=== PATIENT | male | born 1970 | race Caucasian/White ===

== ENCOUNTER → 2018-04-10 | Outpatient (CLI) | payer OTHER ==
--- NOTE | 2018-04-10 11:47 | RADIOLOGY REPORT (SQ) ---
EXAM DESCRIPTION: ANKLE LEFT COMPLETE COMPLETED DATE/TIME: 04/10/2018 11:37 am REASON FOR STUDY: BILAT KNEE PAIN (M25.562, M25.561), BILAT ANKLE PAIN (M25.571,M25.572) M25.571 PA IN IN RIGHT ANKLE AND JOINTS OF RIGHT FOOT M25.561 PAIN IN RIGHT KNEE M25.562 PAIN IN LEFT KNEE COMPARISON: None. NUMBER OF VIEWS: Three views. TECHNIQUE: AP, lateral, and oblique radiographic images acquired of the left ankle. LIMITATIONS: None. FINDINGS: MINERALIZATION: Normal. BONES: No evidence of acute bony abnormality. Degenerative changes with chronic appearing corticated fragment inferior to the medial malleolus. Additional degenerative changes at the lateral malleolus with subcortical lucency in the distal fibula. Plantar and calcaneal enthesophyte. Calcification a t the Achilles tendon. JOINTS: No effusions. SOFT TISSUES: Calcification at the Achilles tendon. OTHER: No other significant finding. IMPRESSION: No evidence of acute bony abnormality. Chronic appearing degenerative changes at the medial and lateral malleolus, likely related to prior i njury. TECHNICAL DOCUMENTATION: JOB ID: [id number] [employer]- All Rights Reserved Reading location - IP/workstation name: [email or web address]
--- NOTE | 2018-04-10 11:49 | RADIOLOGY REPORT (SQ) ---
EXAM DESCRIPTION: ANKLE RIGHT COMPLETE COMPLETED DATE/TIME: 04/10/2018 11:37 am REASON FOR STUDY: BILAT KNEE PAIN (M25.562, M25.561), BILAT ANKLE PAIN (M25.571,M25.572) M25.571 PA IN IN RIGHT ANKLE AND JOINTS OF RIGHT FOOT M25.561 PAIN IN RIGHT KNEE M25.562 PAIN IN LEFT KNEE COMPARISON: None. NUMBER OF VIEWS: Three views. TECHNIQUE: AP, lateral, and oblique radiographic images acquired of the right ankle. LIMITATIONS: None. FINDINGS: MINERALIZATION: Normal. BONES: No fracture or dislocation. Mild osteophytosis at the inferior medial and lateral malleolus. Talar dome is intact. Mild midfoot degenerative change and osteophytosis. Superior and plantar sridevi caneal enthesophytes. JOINTS: No effusions. SOFT TISSUES: No soft tissue swelling. No foreign body. OTHER: No other significant finding. IMPRESSION: No evidence of acute bony abnormality. Mild degenerative change as above. TECHNICAL DOCUMENTATION: JOB ID: [id number] [employer]- All Rights Reserved Reading location - IP/workstation name: [email or web address]
--- NOTE | 2018-04-10 12:00 | RADIOLOGY REPORT (SQ) ---
EXAM DESCRIPTION: KNEE LEFT 4 VIEW COMPLETED DATE/TIME: 04/10/2018 11:37 am REASON FOR STUDY: BILAT KNEE PAIN (M25.562, M25.561), BILAT ANKLE PAIN (M25.571,M25.572) M25.571 PA IN IN RIGHT ANKLE AND JOINTS OF RIGHT FOOT M25.561 PAIN IN RIGHT KNEE M25.562 PAIN IN LEFT KNEE COMPARISON: None. NUMBER OF VIEWS: Four views. TECHNIQUE: AP, lateral, and both oblique radiographic images acquired of the left knee. LIMITATIONS: None. FINDINGS: MINERALIZATION: Normal. BONES: No acute fracture or dislocation. No worrisome bone lesions. Mild enthesopathy at the inferi or patella. JOINT: No effusion. SOFT TISSUES: No soft tissue swelling. No radio-opaque foreign body. OTHER: No other significant finding. IMPRESSION: No evidence of acute bony abnormality. No significant joint space loss. TECHNICAL DOCUMENTATION: JOB ID: [id number] [email or web address]- All Rights Reserved Reading location - IP/workstation name: [facility]
--- NOTE | 2018-04-10 12:03 | RADIOLOGY REPORT (SQ) ---
EXAM DESCRIPTION: KNEE RIGHT 4 VIEWS COMPLETED DATE/TIME: 04/10/2018 11:37 am REASON FOR STUDY: BILAT KNEE PAIN (M25.562, M25.561), BILAT ANKLE PAIN (M25.571,M25.572) M25.571 PA IN IN RIGHT ANKLE AND JOINTS OF RIGHT FOOT M25.561 PAIN IN RIGHT KNEE M25.562 PAIN IN LEFT KNEE COMPARISON: None. NUMBER OF VIEWS: Four views. TECHNIQUE: AP, lateral, and both oblique radiographic images acquired of the right knee. LIMITATIONS: None. FINDINGS: MINERALIZATION: Normal. BONES: No acute fracture or dislocation. No worrisome bone lesions. Mild patellar and anterior tibi al enthesopathy. JOINT: No effusion. SOFT TISSUES: No soft tissue swelling. No radio-opaque foreign body. OTHER: No other significant finding. IMPRESSION: No evidence of acute bony abnormality. No significant degenerative change. TECHNICAL DOCUMENTATION: JOB ID: [id number] [employer]- All Rights Reserved Reading location - IP/workstation name: [facility]
== END ==
LOC: RAD 10:49
PROVIDERS: ATTEND Family Medicine
DX: M25.571 Pain in right ankle and joints of right foot (principal); M25.561 Pain in right knee; M25.562 Pain in left knee; M25.572 Pain in left ankle and joints of left foot; G89.29 Other chronic pain

== ENCOUNTER 2018-06-26 05:33 | Day surgery (SDC) | payer OTHER ==
--- NOTE | 2018-06-19 09:52 | EKG REPORT ---
SEVERITY:- NORMAL ECG - SINUS RHYTHM ST ELEV, PROBABLE NORMAL EARLY REPOL PATTERN : Confirmed by: Rosemarie Nicole 19-Jun-2018 09:52:26
--- NOTE | 2018-06-19 09:56 | RADIOLOGY REPORT (SQ) ---
EXAM DESCRIPTION: CHEST PA/LATERAL COMPLETED DATE/TIME: 06/19/2018 9:46 am REASON FOR STUDY: PRE-OP COMPARISON: None. EXAM PARAMETERS: NUMBER OF VIEWS: two views TECHNIQUE: Digital Frontal and Lateral radiographic views of the chest acquired. RADIATION DOSE: NA LIMITATIONS: none FINDINGS: LUNGS AND PLEURA: No opacities, masses or pneumothorax. No pleural effusion. MEDIASTINUM AND HILAR STRUCTURES: No masses or contour abnormalities. HEART AND VASCULAR STRUCTURES: Heart normal size. No evidence for failure. BONES: No acute findings. HARDWARE: None in the chest. OTHER: No other significant finding. IMPRESSION: 1. NO SIGNIFICANT RADIOGRAPHIC FINDING IN THE CHEST. TECHNICAL DOCUMENTATION: JOB ID: [id number] [employer]- All Rights Reserved Reading location - IP/workstation name: [email or web address]
[2018-06-19 10:00] LABS: HEMATOCRIT 49.7 % (37.9-51.0); HEMOGLOBIN 17.4 g/dL (13.5-17.0); MEAN CORPUSCULAR HEMOGLOBIN 30.1 pg (27.0-33.4); MEAN CORPUSCULAR VOLUME 86 fl (80-97); PLATELET COUNT 241 10^3/uL (150-450); RED BLOOD COUNT 5.78 10^6/uL (4.35-5.55); RED CELL DISTRIBUTION WIDTH 13.4 % (11.5-14.0); WHITE BLOOD COUNT 10.1 10^3/uL (4.0-10.5)
[2018-06-19 10:10] LABS: APPEARANCE,URINE CLEAR; BILIRUBIN,URINE NEGATIVE (NEGATIVE); COLOR,URINE YELLOW; GLUCOSE, URINE NEGATIVE (NEGATIVE); KETONES,URINE NEGATIVE (NEGATIVE); LEUKOCYTE ESTERASE,URINE TRACE (NEGATIVE); NITRITE,URINE NEGATIVE (NEGATIVE); PROTEIN,URINE NEGATIVE (NEGATIVE); UROBILINOGEN,URINE NEGATIVE mg/dL (<2.0)
[2018-06-19 10:27] LABS: ANION GAP 9 (5-19); BLOOD UREA NITROGEN 12 mg/dL (7-20); CALCIUM 9.9 mg/dL (8.4-10.2); CARBON DIOXIDE 26 mmol/L (22-30); CHLORIDE 105 mmol/L (98-107); GLUCOSE 92 mg/dL (75-110); POTASSIUM 4.2 mmol/L (3.6-5.0); SODIUM 140.2 mmol/L (137-145)
[~2018-06-26 05:33] MED LIST: CLINDAMYCIN 600 MG/D5W RTU 600 MG/50 ML RTUPB IV ONE; CLINDAMYCIN 600 MG/D5W RTU 600 MG/50 ML RTUPB IV PRN; LACTATED RINGERS 1000 ML IV PRN; LIDOCAINE 0.5% INJ-PF (5 MG/ML) 50 ML SDV SUBCUT PRN; SCOPOLAMINE HYDROBROMIDE 1.5 MG PATCH.TD72 TD PRN
[2018-06-26] MEDS ORDERED: SCOPOLAMINE HYDROBROMIDE 1.5 MG PATCH.TD72 ONE (06:56)
[2018-06-26] MEDS ORDERED: ONDANSETRON HCL INJ/PF 4 MG/2 ML SDV ONE ×2 (06:56→07:03)
[2018-06-26] MEDS ORDERED: FENTANYL CITRATE INJ/PF 100 MCG/2 ML AMPUL ONE (07:03)
[2018-06-26] MEDS ORDERED: EPHEDRINE SULFATE INJ 50 MG/1 ML AMPULE ONE (07:03)
[2018-06-26] MEDS ORDERED: MIDAZOLAM 2 MG/2 ML INJ ONE (07:03)
[2018-06-26] MEDS ORDERED: ACETAMINOPHEN 1,000 MG/100 ML RTUPB IV ONE (07:04)
[2018-06-26] MEDS ORDERED: PROPOFOL INJ 200 MG/20 ML VIAL IV ONE (07:04)
[2018-06-26] MEDS ORDERED: TRANEXAMIC ACID INJ/PF 1,000 MG/10 ML SDV IV ONE (07:09)
[2018-06-26] MEDS ORDERED: BUPIVACAINE HCL 0.5 % INJ/PF 30 ML SDV ONE (07:15)
[2018-06-26] MEDS ORDERED: PROMETHAZINE HCL INJ 25 MG/1 ML VIAL ONE (07:45)
[2018-06-26] MEDS ORDERED: DEXAMETHASONE SOD PHOSPHATE INJ 4 MG/1 ML VIAL ONE (07:45)
[2018-06-26] MEDS ORDERED: HYDROMORPHONE HCL INJ/PF 2 MG/ML AMPULE ONE (07:45)
[2018-06-26] MEDS ORDERED: FENTANYL CITRATE INJ/PF 100 MCG/2 ML AMPUL IV PRN ×3 (08:49)
[2018-06-26] MEDS ORDERED: MEPERIDINE HCL/PF INJ 25 MG/1 ML DISP.SYRIN IV PRN (08:49)
[2018-06-26] MEDS ORDERED: MORPHINE SULFATE 10 MG/ML INJ IV PRN (08:49)
[2018-06-26] MEDS ORDERED: PROMETHAZINE HCL INJ 25 MG/1 ML VIAL IV PRN ×2 (08:49)
[2018-06-26] MEDS ORDERED: DIPHENHYDRAMINE HCL 50 MG/ML VIAL IV PRN (08:49)
--- NOTE | 2018-06-26 09:01 | Operative Report ---
Operative Report DATE OF SURGERY: 06/26/18 PREOPERATIVE DIAGNOSIS: Left ankle arthritis OPERATION: Left tibiotalar fusion SURGEON: BETINA MARSHALL ANESTHESIA: Spinal ESTIMATED BLOOD LOSS: 50 PROCEDURE: With the patient supine and operative table left lower extremities prepped and draped in sterile fashion. Limb was elevated for exsanguination tourniquet inflated to 280 torr. Longitudinal incisions made over the anterior tibialis tendon in we entered the tibialis tendon and exited on its deep surface in the approach to the ankle. Do this to avoid the neurovascular bundle which is adjacent to it. The ankle joint is exposed. Using oscillating saw the proximal articular surface of the talus is resected followed by the distal articular surface of the tibia. The post cancellus surfaces were then approximated and held with a Steinmann pin through the plantar surface of the foot to look at alignment. This is judged fluoroscopically. Hindfoot appears to be in neutral. Foot seems to be neutral in terms of plantar and dorsal grade. Subsequently the Arthrex anterior tibiotalar fusion plate is applied to the answer will surface of the talus. It secured with 4 screws. Next bone graft is made by morselizing the bone that was resected from the articular surfaces is placed at the tibiotalar joint. A compression screw was placed through the oblong hole and the Arthrex fusion plate. The plantar pin is removed and then the plate is compressed using this compression screw. There is a clear visual confirmation of the compression. The remaining 4 screws were placed into the tibia. Hardware placement and foot position is again checked fluoroscopically and thought to be adequate. The tourniquet is deflated. Hemostasis obtained with electrocautery. The wound is irrigated with bulb lavage. I's and closure is interrupted Vicryl followed by nylon. A sterile compressive dressing posterior plaster splint were applied and the patient's return to PACU in satisfactory condition.
[2018-06-26] MEDS ORDERED: RINGERS SOLUTION,LACTATED 1,000 ML IV PRN (10:31)
[2018-06-26] MEDS ORDERED: ONDANSETRON 4 MG TAB.RAPDIS SL PRN (10:32)
[2018-06-26] MEDS ORDERED: ACETAMINOPHEN 325 MG TABLET PO PRN (10:32)
[2018-06-26] MEDS: OXYCODONE HCL IR 5 MG TABLET PO PRN ×2 (10:59→19:03)
[2018-06-26] MEDS: CLINDAMYCIN 600 MG/D5W RTU 600 MG/50 ML RTUPB IV SCH ×2 (11:11→17:25)
--- NOTE | 2018-06-26 11:34 | RADIOLOGY REPORT (SQ) ---
EXAM DESCRIPTION: ANKLE LEFT AP/LATERAL; NO CHG FLUORO COMPLETED DATE/TIME: 06/26/2018 9:29 am REASON FOR STUDY: LEFT ANKLE ARTHRODESIS ASST WITH FLUORO IN OR M25.572 PAIN IN LEFT ANKLE AND JOIN TS OF LEFT FOOT COMPARISON: Left ankle films 04/10/2018 FLUOROSCOPY TIME: 0.4 minutes 3 images saved to PACS. TECHNIQUE: Intra-operative images acquired during surgical procedure to evaluate progress. NUMBER OF IMAGES: 3 LIMITATIONS: None. FINDINGS: Intra procedural imaging and fluoro during fusion at the tibiotalar joint, with anterior f ixation plate and multiple screws. Please see the operative report for further details IMPRESSION: Intra procedural imaging and fluoro COMMENT: Quality ID 145: Final reports for procedures using fluoroscopy that document radiation exp osure indices, or exposure time and number of fluorographic images (if radiation exposure indices are not available) Please consult full operative report of the attending physician for description of the procedure. TECHNICAL DOCUMENTATION: JOB ID: [id number] [employer]- All Rights Reserved Reading location - IP/workstation name: [email or web address]
--- NOTE | 2018-06-26 11:34 | RADIOLOGY REPORT (SQ) ---
EXAM DESCRIPTION: ANKLE LEFT AP/LATERAL; NO CHG FLUORO COMPLETED DATE/TIME: 06/26/2018 9:29 am REASON FOR STUDY: LEFT ANKLE ARTHRODESIS ASST WITH FLUORO IN OR M25.572 PAIN IN LEFT ANKLE AND JOIN TS OF LEFT FOOT COMPARISON: Left ankle films 04/10/2018 FLUOROSCOPY TIME: 0.4 minutes 3 images saved to PACS. TECHNIQUE: Intra-operative images acquired during surgical procedure to evaluate progress. NUMBER OF IMAGES: 3 LIMITATIONS: None. FINDINGS: Intra procedural imaging and fluoro during fusion at the tibiotalar joint, with anterior f ixation plate and multiple screws. Please see the operative report for further details IMPRESSION: Intra procedural imaging and fluoro COMMENT: Quality ID 145: Final reports for procedures using fluoroscopy that document radiation exp osure indices, or exposure time and number of fluorographic images (if radiation exposure indices are not available) Please consult full operative report of the attending physician for description of the procedure. TECHNICAL DOCUMENTATION: JOB ID: [id number] [employer]- All Rights Reserved Reading location - IP/workstation name: [email or web address]
[2018-06-26] MEDS: MORPHINE SULFATE 10 MG/ML INJ IV PRN ×5 (12:01→23:28)
[2018-06-26] MEDS ORDERED: SUCCINYLCHOLINE CHLORIDE INJ 200 MG/10 ML VIAL ONE (15:26)
[2018-06-27] MEDS: MORPHINE SULFATE 10 MG/ML INJ IV PRN ×2 (02:53→05:22)
--- NOTE | 2018-06-27 07:00 | PDOC DISCHARGE SUMMARY ---
General - Admit/Disc Date/PCP Admission Date/Primary Care Provider: KEM HUBBARD DO Discharge Date: 06/27/18 - Discharge Diagnosis (1) Arthritis of left ankle Is this a current diagnosis for this admission?: Yes - Additional Information Home Medications: Acetaminophen [Tylenol Extra Strength 500 mg Tablet] 1,000 mg PO Q6HP PRN 06/26/18 Dextroamphetamine/Amphetamine [Adderall 20 mg Tablet] 50 mg PO DAILY@1700 06/26/18 Ibuprofen [Motrin 800 mg Tablet] 800 mg PO Q8HP PRN 06/26/18 Montelukast Sodium [Singulair 10 mg Tablet] 10 mg PO QAM 06/26/18 Pramipexole Di-HCl [Mirapex] 1 mg PO QAM 06/26/18 History of Present Illness History of Present Illness: REBECCA SOLORZANO is a 48 year old male Patient is a 48-year-old white male with progressive left ankle pain and functional disability second osteoarthritis. Patient is admitted for elective left tibiotalar arthrodesis. Hospital Course Hospital Course: Patient is admitted through the operating where he undergoes uncomplicated left tibiotalar arthrodesis. Is returned to floor in satisfactory condition. Initially analgesia remains problematic but this is addressed over the course of the subsequent 12-24 hours. Patient will be seen by physical therapy prior to discharge to assess the patient's ability to ambulate with a touchdown weightbearing restriction. Physical Exam Vital Signs: Temp Pulse Resp BP Pulse Ox 37.1 C 69 18 137/69 H 100 06/27/18 04:54 06/27/18 04:54 06/27/18 04:54 06/27/18 04:54 06/27/18 04:54 Intake & Output 06/25/18 06/26/18 06/27/18 06:59 06:59 06:59 Intake Total 0 2800 Output Total 2500 Balance 0 300 Weight 136.08 kg 136 kg Physical Exam: Overweight middle-aged white male lying in hospital bed in minimal distress. General appearance: PRESENT: no acute distress, mild distress, well-nourished Head exam: PRESENT: normocephalic Respiratory exam: PRESENT: unlabored Cardiovascular exam: PRESENT: RRR Vascular exam: PRESENT: normal capillary refill GI/Abdominal exam: PRESENT: soft Rectal exam: PRESENT: deferred Extremities exam: PRESENT: other - Left lower extremity immobilized in plaster splint. Toes are visible. There is brisk capillary refill. Sensory examination is intact to light touch. Motor function to great toe flexion extension is intact. Neurological exam: PRESENT: alert, awake, oriented to person, oriented to place, oriented to time, oriented to situation. ABSENT: motor sensory deficit Psychiatric exam: PRESENT: appropriate affect, normal mood. ABSENT: homicidal ideation, suicidal ideation Skin exam: PRESENT: dry, intact, warm. ABSENT: cyanosis, rash Results Laboratory Results: 06/19/18 09:27 06/19/18 09:27 Impressions: Chest X-Ray 06/19/18 00:00 IMPRESSION: 1. NO SIGNIFICANT RADIOGRAPHIC FINDING IN THE CHEST. Ankle X-Ray 06/26/18 00:00 IMPRESSION: Intra procedural imaging and fluoro Fluoroscopy 06/26/18 00:00 IMPRESSION: Intra procedural imaging and fluoro Status: Imported from PACS Qualifiers - * PATIENT BEING DISCHARGED WITH ANY OF THE FOLLOWING DIAGNOSIS: No VTE patient discharged on overlapping Therapy?: Yes Plan Discharge Plan: Patient be discharged on a touchdown weightbearing restriction on the left lower extremity. Social work to arrange for home health nursing, home health physical therapy, and DME. Follow-up with Dr. Jaz Nichole Morse for surgery in 2 weeks for suture removal.
[2018-06-27] MEDS: OXYCODONE HCL IR 5 MG TABLET PO PRN (07:57)
[2018-06-27 09:37] VITALS: BP 160/97
[2018-06-27] MEDS ORDERED: ASPIRIN 81 MG TABLET, ENT COATED PO SCH (10:00)
== END 2018-06-27 10:49 | disposition home or self-care (01) ==
LOC: OROUT 05:33 → 2N 10:00 → OROUT 06-27 10:49
PROVIDERS: ATTEND Orthopaedic Surgery
DX: M19.072 Primary osteoarthritis, left ankle and foot (principal); M25.572 Pain in left ankle and joints of left foot; E03.9 Hypothyroidism, unspecified; E78.5 Hyperlipidemia, unspecified; Z79.899 Other long term (current) drug therapy; Z79.4 Long term (current) use of insulin; Z88.0 Allergy status to penicillin; Z87.892 Personal history of anaphylaxis; J45.909 Unspecified asthma, uncomplicated; Z01.818 Encounter for other preprocedural examination
CPT/HCPCS: 93010; 93005; 27870; 36415; 85027; 80048; 81001; 73600; 71046; 97116; 97161; C1769; J2250; J3490; J1100; J3010; J2270 ×2; J1170; J2550; J0330; J2405; J7120; J2704; J0131; 01480

== ENCOUNTER → 2018-11-14 | Outpatient (CLI) | payer OTHER ==
[2018-11-14 09:18] LABS: HEMATOCRIT 46.9 % (37.9-51.0); HEMOGLOBIN 16.1 g/dL (13.5-17.0); MEAN CORPUSCULAR HGB CONC 34.3 g/dL (32.0-36.0); MEAN CORPUSCULAR VOLUME 88 fl (80-97); PLATELET COUNT 196 10^3/uL (150-450); RED BLOOD COUNT 5.37 10^6/uL (4.35-5.55); RED CELL DISTRIBUTION WIDTH 13.6 % (11.5-14.0); WHITE BLOOD COUNT 7.1 10^3/uL (4.0-10.5)
[2018-11-14 09:56] LABS: ALANINE AMINOTRANSFERASE 42 U/L (21-72); ALBUMIN 4.2 g/dL (3.5-5.0); ALKALINE PHOSPHATASE 83 U/L (38-126); ANION GAP 6 (5-19); ASPARTATE AMINO TRANSFERASE 29 U/L (17-59); BILIRUBIN,DIRECT 0.3 mg/dL (0.0-0.4); BILIRUBIN,TOTAL 0.6 mg/dL (0.2-1.3); BLOOD UREA NITROGEN 14 mg/dL (7-20); C-REACTIVE PROTEIN 7.2 mg/L (<10.0); CALCIUM 9.3 mg/dL (8.4-10.2); CARBON DIOXIDE 28 mmol/L (22-30); CHLORIDE 106 mmol/L (98-107); GLUCOSE 109 mg/dL (75-110); POTASSIUM 4.2 mmol/L (3.6-5.0); TOTAL PROTEIN 7.1 g/dL (6.3-8.2)
[2018-11-14 09:57] LABS: ERYTHROCYTE SEDIMENTATION RATE 10 mm/hr (0-15)
== END ==
LOC: OD 08:54
PROVIDERS: ATTEND Orthopaedic Surgery
DX: M19.079 Primary osteoarthritis, unspecified ankle and foot (principal)
CPT/HCPCS: 36415; 80053; 85027; 85652; 86140

== ENCOUNTER → 2018-11-20 | Outpatient (CLI) | payer OTHER ==
--- NOTE | 2018-11-20 11:28 | RADIOLOGY REPORT (SQ) ---
EXAM DESCRIPTION: CT LT LOWER EXTREMITY WITHOUT COMPLETED DATE/TIME: 11/20/2018 9:49 am REASON FOR STUDY: M19.079 PRIMARY OSTEOARTHRITIS, UNSPECIFIED ANKLE AND FOOT M19.079 PRIMARY OSTEOA RTHRITIS, UNSPECIFIED ANKLE AND FOOT COMPARISON: None. TECHNIQUE: Axial imaging performed through the left ankle with reformatted coronal and sagittal imag ing windowed for bone and soft tissues. Images saved to PACS. 3D IMAGING: Were 3D images as MIP, SSD, or volume rendering performed at the work station? Yes. All CT scanners at this facility use dose modulation, iterative reconstruction, and/or weight based d osing when appropriate to reduce radiation dose to as low as reasonably achievable (ALARA). [facility]: Dose Right [facility]: CareDose [facility]: Dose Right [facility]: Teradose 4D [facility]: [employer] LIMITATIONS: None. RADIATION DOSE: CT Rad equipment meets quality standard of care and radiation dose reduction techniq ues were employed. CTDIvol: 4.6 mGy. DLP: 122 mGy-cm. mGy. FINDINGS: SOFT TISSUES: No soft tissue masses. No significant soft tissue edema. BONES: No acute fracture. There is tibiotalar arthrodesis with an anterior plate and screws into the tibia and talus. The dome of the talus is somewhat fragmented, likely reason for the arthrodesis. MINERALIZATION: Normal. OTHER: No other significant finding. IMPRESSION: There is no evidence of osteomyelitis. TECHNICAL DOCUMENTATION: JOB ID: [id number] Quality ID # [id number]: Final reports with documentation of one or more dose reduction techniques (e.g., Au tomated exposure control, adjustment of the mA and/or kV according to patient size, use of iterative reconstruction technique) 2010 [employer]- All Rights Reserved Reading location - IP/workstation name: [email or web address]
== END ==
LOC: WI 09:39
PROVIDERS: ATTEND Orthopaedic Surgery
DX: M19.072 Primary osteoarthritis, left ankle and foot (principal)

== ENCOUNTER 2019-01-08 06:27 | Day surgery (SDC) | payer OTHER ==
[2019-01-03 09:57] LABS: APPEARANCE,URINE CLEAR; BILIRUBIN,URINE NEGATIVE (NEGATIVE); COLOR,URINE YELLOW; GLUCOSE, URINE NEGATIVE (NEGATIVE); KETONES,URINE NEGATIVE (NEGATIVE); LEUKOCYTE ESTERASE,URINE NEGATIVE (NEGATIVE); NITRITE,URINE NEGATIVE (NEGATIVE); PROTEIN,URINE NEGATIVE (NEGATIVE); URINE SPECIFIC GRAVITY 1.014; UROBILINOGEN,URINE NEGATIVE mg/dL (<2.0)
[2019-01-03 10:04] LABS: ADD MANUAL MICROSCOPIC YES
[2019-01-03 10:31] LABS: HEMATOCRIT 46.5 % (37.9-51.0); HEMOGLOBIN 16.1 g/dL (13.5-17.0); MEAN CORPUSCULAR HEMOGLOBIN 30.2 pg (27.0-33.4); MEAN CORPUSCULAR HGB CONC 34.7 g/dL (32.0-36.0); MEAN CORPUSCULAR VOLUME 87 fl (80-97); PLATELET COUNT 214 10^3/uL (150-450); RED BLOOD COUNT 5.34 10^6/uL (4.35-5.55); RED CELL DISTRIBUTION WIDTH 13.6 % (11.5-14.0); WHITE BLOOD COUNT 8.3 10^3/uL (4.0-10.5)
[2019-01-03 10:45] LABS: ANION GAP 10 (5-19); BLOOD UREA NITROGEN 13 mg/dL (7-20); CALCIUM 9.7 mg/dL (8.4-10.2); CARBON DIOXIDE 29 mmol/L (22-30); CHLORIDE 100 mmol/L (98-107); GLUCOSE 113 mg/dL (75-110); POTASSIUM 4.4 mmol/L (3.6-5.0)
--- NOTE | 2019-01-03 23:03 | EKG REPORT ---
SEVERITY:- NORMAL ECG - SINUS RHYTHM : Confirmed by: Malini Szymanski MD 03-Jan-2019 23:03:04
[2019-01-08] MEDS ORDERED: SCOPOLAMINE HYDROBROMIDE 1.5 MG PATCH.TD72 ONE (06:46)
[2019-01-08] MEDS ORDERED: FENTANYL CITRATE INJ/PF 100 MCG/2 ML AMPUL ONE ×2 (06:55→09:36)
[2019-01-08] MEDS ORDERED: PROPOFOL INJ 200 MG/20 ML VIAL IV ONE (06:56)
[2019-01-08] MEDS ORDERED: MIDAZOLAM 2 MG/2 ML INJ ONE (06:56)
[2019-01-08] MEDS ORDERED: BUPIVACAINE HCL 0.5%-EPI 1:200000 INJ/PF 30 ML VIAL ONE (08:36)
[2019-01-08] MEDS ORDERED: ONDANSETRON HCL INJ/PF 4 MG/2 ML SDV ONE (09:36)
[2019-01-08] MEDS ORDERED: DEXAMETHASONE SOD PHOSPHATE INJ 4 MG/1 ML VIAL ONE (09:36)
[2019-01-08] MEDS ORDERED: KETOROLAC TROMETHAMINE 60 MG/2 ML SDV ONE (09:36)
[2019-01-08] MEDS ORDERED: PROMETHAZINE HCL INJ 25 MG/1 ML VIAL ONE (09:52)
[2019-01-08] MEDS ORDERED: MORPHINE SULFATE 10 MG/ML INJ IV PRN (10:19)
[2019-01-08] MEDS ORDERED: PROMETHAZINE HCL INJ 25 MG/1 ML VIAL IV PRN (10:19)
[2019-01-08] MEDS ORDERED: MEPERIDINE HCL/PF INJ 25 MG/1 ML DISP.SYRIN IV PRN (10:19)
[2019-01-08] MEDS ORDERED: ONDANSETRON HCL INJ/PF 4 MG/2 ML SDV IV PRN (10:19)
[2019-01-08] MEDS ORDERED: OXYCODONE-ACETAMINOPHEN 5-325 MG TABLET PO PRN ×3 (10:19→12:07)
[2019-01-08] MEDS ORDERED: DIPHENHYDRAMINE HCL 50 MG/ML VIAL IV PRN (10:19)
[2019-01-08] MEDS ORDERED: FENTANYL CITRATE INJ/PF 100 MCG/2 ML AMPUL IV PRN ×3 (10:19)
--- NOTE | 2019-01-08 10:32 | Discharge Summary ---
Discharge Summary (SDC) - Discharge Final Diagnosis: Retained hardware left ankle Date of Surgery: 01/08/19 Discharge Date: 01/08/19 Condition: Good Forms: ASU Anesthesia D/C Instruction, Discharge POC-Surgical Service Treatment or Instructions: Touchdown weightbearing left lower extremity Prescriptions: Oxycodone HCl/Acetaminophen [Percocet 5-325 mg Tablet] 1 tab PO Q6 PRN #40 tablet PRN Reason: Referrals: BETINA MARSHALL MD [ACTIVE STAFF] - Discharge Diet: As Tolerated, Regular Discharge Activity: Balance Activity w/Rest, No tub bath Home Care Assistance: None Needed Report the Following to Your Physician Immediately: Shortness of Breath, Fever over 101 Degrees, Drainage-Foul Smelling
--- NOTE | 2019-01-08 10:34 | Operative Report ---
Operative Report DATE OF SURGERY: 01/08/19 PREOPERATIVE DIAGNOSIS: Retained hardware left ankle status post left ankle art hrodesis OPERATION: Hardware removal SURGEON: BETINA MARSHALL ANESTHESIA: GA TISSUE REMOVED OR ALTERED: Cultures to microbiology, implants to CSS ESTIMATED BLOOD LOSS: Minimal PROCEDURE: With the patient supine Afrin table left lower extremities prepped and draped in sterile fashion. Limb is elevated for exsanguination tourniquet inflated to 180 torr. Longitudinal incision was made over the anterior aspect of the left ankle in line with the previous surgical approach. The approach goes through the anterior tibial tendon sheath to avoid the neurovascular bundle. The underlying plate and screws were identified just sent to microbiology. Subsequently 10 screws were removed followed by 1 plate. These were delivered from the field. Graft the tourniquet was deflated. The wound was irrigated with bulb lavage. Hemostasis obtained with electrocautery. The wound was closed in layers interrupted Vicryl followed by Dermabond. A posterior plaster splints applied and patient's return to the PACU in satisfactory condition.
[2019-01-08] MEDS: FENTANYL CITRATE INJ/PF 100 MCG/2 ML AMPUL ONE ×2 (11:40→11:45)
[2019-01-08] MEDS ORDERED: ACETAMINOPHEN 1,000 MG/100 ML RTUPB IV ONE (11:46)
[2019-01-08] MEDS ORDERED: OXYCODONE-ACETAMINOPHEN 5-325 MG TABLET ONE (12:27)
[2019-01-08 13:26] VITALS: BP 151/85
[2019-01-08] MEDS ORDERED: ROCURONIUM BROMIDE INJ 50 MG/5 ML VIAL IV ONE (13:37)
[2019-01-08] MEDS ORDERED: SUCCINYLCHOLINE CHLORIDE INJ 200 MG/10 ML VIAL ONE (13:37)
== END 2019-01-08 13:20 | disposition home or self-care (01) ==
LOC: OROUT 06:27
PROVIDERS: ATTEND Orthopaedic Surgery
DX: T84.84XA Pain due to internal orthopedic prosthetic devices, implants and grafts, initial encounter (principal); Y83.8 Other surgical procedures as the cause of abnormal reaction of the patient, or of later complication, without mention of misadventure at the time of the procedure; M19.079 Primary osteoarthritis, unspecified ankle and foot; E03.9 Hypothyroidism, unspecified; E78.5 Hyperlipidemia, unspecified; M25.572 Pain in left ankle and joints of left foot; Z79.899 Other long term (current) drug therapy
CPT/HCPCS: 93005; 36415; 87070; 87205; 85027; 87075; 80048; 81001; 93010; 20680; J2250; J3490 ×2; J1100; J1885; J3010; J2550; J0330; J2405; J2704; J0131; 1480

== ENCOUNTER → 2019-10-10 | Outpatient (CLI) | payer OTHER ==
[2019-10-10 12:36] LABS: APPEARANCE,URINE SLIGHTLY-CLOUDY; BILIRUBIN,URINE NEGATIVE (NEGATIVE); COLOR,URINE YELLOW; GLUCOSE, URINE NEGATIVE (NEGATIVE); KETONES,URINE NEGATIVE (NEGATIVE); LEUKOCYTE ESTERASE,URINE NEGATIVE (NEGATIVE); NITRITE,URINE NEGATIVE (NEGATIVE); PROTEIN,URINE 30 mg/dL (NEGATIVE); URINE SPECIFIC GRAVITY 1.024; UROBILINOGEN,URINE NEGATIVE mg/dL (<2.0)
[2019-10-10 12:40] LABS: ABSOLUTE EOSINOPHILS # (AUTO) 0.1 10^3/uL (0.0-0.6); ABSOLUTE LYMPHOCYTES (AUTO) 3.3 10^3/uL (0.5-4.7); ABSOLUTE MONOCYTES (AUTO) 0.5 10^3/uL (0.1-1.4); ABSOLUTE NEUT (AUTO) 4.8 10^3/uL (1.7-8.2); BASOPHILS % (AUTO) 0.4 % (0-2); EOSINOPHILS % (AUTO) 0.6 % (0-6); HEMATOCRIT 48.9 % (37.9-51.0); LYMPHOCYTES % (AUTO) 38.2 % (13-45); MEAN CORPUSCULAR HEMOGLOBIN 30.6 pg (27.0-33.4); MEAN CORPUSCULAR HGB CONC 34.7 g/dL (32.0-36.0); MEAN CORPUSCULAR VOLUME 88 fl (80-97); MONOCYTES % (AUTO) 5.3 % (3-13); PLATELET COUNT 230 10^3/uL (150-450); RED BLOOD COUNT 5.54 10^6/uL (4.35-5.55); RED CELL DISTRIBUTION WIDTH 13.4 % (11.5-14.0); SEGMENTED NEUTROPHILS % (AUTO) 55.5 % (42-78); TOTAL CELLS COUNTED % (AUTO) 100 %; WHITE BLOOD COUNT 8.6 10^3/uL (4.0-10.5)
[2019-10-10 12:46] LABS: INTERNATIONAL RATION (INR) 1.07; PROTHROMBIN TIME 13.9 SEC (11.4-15.4)
[2019-10-10 12:47] LABS: PARTIAL THROMBOPLASTIN TIME 40.3 SEC (23.5-35.8)
== END ==
LOC: OD 11:18
PROVIDERS: ATTEND Physician Assistant
DX: G90.522 Complex regional pain syndrome I of left lower limb (principal)
CPT/HCPCS: 36415; 81001; 85025; 85610; 85730